=== PATIENT | female | born 2000 | race Caucasian/White ===

== ENCOUNTER 2024-05-17 10:51 | Emergency (ER) | payer MEDICAID ==
[~2024-05-17] VITALS: Ht 162.6 cm; Wt 136.0 kg
[2024-05-17 11:03] VITALS: O2SAT 99
[2024-05-17 11:04] VITALS: O2SAT 99
[2024-05-17 12:25] VITALS: BP 185/86; PULSE 90; RESP 18; TEMP 98.3
[2024-05-17] MEDS: ACETAMINOPHEN 650MG/20.3ML UDC PO ONE (12:25)
[2024-05-17] MEDS: KETOROLAC 30MG/ML VIAL IM ONE (12:25)
== END 2024-05-17 14:04 | disposition home or self-care (01) ==
LOC: ER 10:51
DX: R07.9 Chest pain, unspecified (principal); J45.909 Unspecified asthma, uncomplicated; V49.60XA Unspecified car occupant injured in collision with unspecified motor vehicles in traffic accident, initial encounter; Y93.89 Activity, other specified; Y92.89 Other specified places as the place of occurrence of the external cause; Y99.8 Other external cause status
CPT/HCPCS: 99283; 71045; 96372; J1885